=== PATIENT | male | born 1965 | race African-American/Black ===

== ENCOUNTER → 2016-08-13 | Outpatient (CLI) | payer OTHER | LOC: MMPC 09:00 | PROVIDERS: ATTEND Family Medicine | DX: Z79.01 Long term (current) use of anticoagulants (principal); Z51.81 Encounter for therapeutic drug level monitoring; Z86.718 Personal history of other venous thrombosis and embolism | CPT/HCPCS: 85610 ==

== ENCOUNTER → 2016-08-21 | Outpatient (CLI) | payer OTHER | LOC: MMPC 09:00 | PROVIDERS: ATTEND Family Medicine | DX: Z79.01 Long term (current) use of anticoagulants (principal); Z51.81 Encounter for therapeutic drug level monitoring; Z86.718 Personal history of other venous thrombosis and embolism | CPT/HCPCS: 85610 ==

== ENCOUNTER → 2016-08-22 | Outpatient (CLI) | payer OTHER ==
--- NOTE | 2016-08-22 11:18 | DI ---
History: Left knee arthroplasty check. Prior exam: 04/25/16, time of surgery. Two-view examination. Findings: The femoral and tibial components appear properly positioned. There is no evidence of bone resorption or displacement. Patient's [place] patella appears normal. No displacement identified. No e vidence of effusion observed. Impression: Satisfactory appearance of left total knee replacement. Details mentioned above
--- NOTE | 2016-08-22 12:00 | DI ---
History: Pulmonary emboli in 2016. Patient on Coumadin. Leg swelling below the site of chronic thromb osis. Procedure: This examination was performed with mid frequency trans-user left lower extremity only wit h compression and augmentation. Findings: The greater saphenous venous system is patent. No thrombosis is noted in the common femoral vein. Good flow and augmentation with compression identified. The superficial femoral vein is partially thrombosed down to the popliteal vein/adductor canal level. There has been some organization and recanalization of the clot. No large amount of edema is observe d in the soft tissues in the lower calf region. Impression: Persistent organized thrombosis of the left superficial femoral vein with recanalization. No ultrasonographic evidence of acute vein thrombosis observed. Very limited waveforms identified in this area. Consider followup examination if symptoms progress. Results were discussed with Eddie clifton at 1153 hours today.
== END ==
LOC: MOB RAD 09:00
PROVIDERS: ATTEND Physician Assistant Medical
DX: M25.562 Pain in left knee (principal); M79.89 Other specified soft tissue disorders; I82.512 Chronic embolism and thrombosis of left femoral vein; Z96.652 Presence of left artificial knee joint
CPT/HCPCS: 73560; 93971; 99214; G0463

== ENCOUNTER → 2016-08-25 | Outpatient (CLI) | payer OTHER ==
--- NOTE | 2016-08-25 20:47 | DI ---
LEFT KNEE, 08/25/2016 4:31 PM: Clinical History: Acute left knee pain. Previous Exam: 08/22/2016. 3 views are submitted. The patient is status post total left knee replacement. The prosthetic device articulates normally. There is no evidence of loosening of the prosthesis. No joint effusion is prese nt. Reading: Status post total left knee replacement. The prosthetic joint articulates normally. There has been no change.
== END ==
LOC: ORTHO 16:42
PROVIDERS: ATTEND Orthopaedic Surgery
DX: M25.562 Pain in left knee (principal); Z96.652 Presence of left artificial knee joint
CPT/HCPCS: 73562

== ENCOUNTER → 2016-09-18 | Outpatient (CLI) | payer OTHER | LOC: MMPC 09:00 | PROVIDERS: ATTEND Family Medicine | DX: Z79.01 Long term (current) use of anticoagulants (principal); Z51.81 Encounter for therapeutic drug level monitoring; Z86.718 Personal history of other venous thrombosis and embolism | CPT/HCPCS: 85610 ==

== ENCOUNTER → 2016-10-15 | Outpatient (CLI) | payer OTHER | LOC: MMPC 09:00 | PROVIDERS: ATTEND Family Medicine | DX: E11.9 Type 2 diabetes mellitus without complications (principal); I10 Essential (primary) hypertension; E66.01 Morbid (severe) obesity due to excess calories; M17.11 Unilateral primary osteoarthritis, right knee; M17.12 Unilateral primary osteoarthritis, left knee; F33.40 Major depressive disorder, recurrent, in remission, unspecified; Z86.718 Personal history of other venous thrombosis and embolism | CPT/HCPCS: 99214 ==

== ENCOUNTER → 2016-10-16 | Outpatient (CLI) | payer OTHER ==
--- NOTE | 2016-10-17 08:05 | DI ---
LEFT KNEE, 10/16/2016 11:37 AM: Clinical History: History of left knee replacement for degenerative arthritic disease. Previous Exam: 08/25/2016. 3 views are submitted. The AP projection is a weightbearing view. The patient is status post total le ft knee replacement. The prosthetic device articulates normally. There is no joint effusion. There is no evidence of loosening of the prosthetic device. Reading: Status post total left knee replacement. There has been no change since the previous exam.
== END ==
LOC: ORTHO 11:47
PROVIDERS: ATTEND Orthopaedic Surgery
DX: M25.562 Pain in left knee (principal); Z96.652 Presence of left artificial knee joint; Z98.890 Other specified postprocedural states; Z79.01 Long term (current) use of anticoagulants; Z51.81 Encounter for therapeutic drug level monitoring; Z86.718 Personal history of other venous thrombosis and embolism
CPT/HCPCS: 73562; 85610; 99214; G0463

== ENCOUNTER → 2016-11-06 | Outpatient (CLI) | payer OTHER | LOC: SLEEP LAB 19:28 | PROVIDERS: ATTEND Family Medicine | DX: G47.33 Obstructive sleep apnea (adult) (pediatric) (principal) | CPT/HCPCS: 95811 ==

== ENCOUNTER → 2016-11-13 | Outpatient (CLI) | payer OTHER | LOC: MMPC 09:00 | PROVIDERS: ATTEND Family Medicine | DX: Z79.01 Long term (current) use of anticoagulants (principal); Z51.81 Encounter for therapeutic drug level monitoring; Z86.718 Personal history of other venous thrombosis and embolism | CPT/HCPCS: 85610 ==

== ENCOUNTER → 2016-12-01 | Outpatient (CLI) | payer OTHER | LOC: MMPC 10:00 | PROVIDERS: ATTEND Orthopaedic Surgery | DX: M25.562 Pain in left knee (principal); Z96.652 Presence of left artificial knee joint | CPT/HCPCS: 99213; G0463 ==

== ENCOUNTER → 2016-12-09 | Outpatient (CLI) | payer OTHER ==
[2016-12-09 10:16] LABS: HEMOGLOBIN A1C 7.72 % (4.2-6.0)
== END ==
LOC: MOB LAB 08:13
PROVIDERS: ATTEND Family Medicine
DX: E11.9 Type 2 diabetes mellitus without complications (principal)
CPT/HCPCS: 83036

== ENCOUNTER → 2016-12-10 | Outpatient (CLI) | payer OTHER | LOC: MMPC 09:00 | PROVIDERS: ATTEND Family Medicine | DX: I10 Essential (primary) hypertension (principal); E11.9 Type 2 diabetes mellitus without complications; M25.561 Pain in right knee; M25.562 Pain in left knee; E66.01 Morbid (severe) obesity due to excess calories; G47.33 Obstructive sleep apnea (adult) (pediatric); Z86.718 Personal history of other venous thrombosis and embolism; Z79.01 Long term (current) use of anticoagulants; Z96.652 Presence of left artificial knee joint | CPT/HCPCS: 99215; G0463 ==

== ENCOUNTER → 2016-12-12 | Outpatient (CLI) | payer OTHER | LOC: MMPC 09:00 | PROVIDERS: ATTEND Family Medicine | DX: Z79.01 Long term (current) use of anticoagulants (principal); Z51.81 Encounter for therapeutic drug level monitoring; Z86.718 Personal history of other venous thrombosis and embolism | CPT/HCPCS: 85610 ==

== ENCOUNTER → 2017-01-08 | Outpatient (CLI) | payer OTHER | LOC: MMPC 09:00 | PROVIDERS: ATTEND Family Medicine | DX: Z79.01 Long term (current) use of anticoagulants (principal); Z51.81 Encounter for therapeutic drug level monitoring; Z86.718 Personal history of other venous thrombosis and embolism | CPT/HCPCS: 85610 ==

== ENCOUNTER → 2017-01-21 | Outpatient (CLI) | payer OTHER | LOC: MMPC 09:00 | PROVIDERS: ATTEND Family Medicine | DX: I10 Essential (primary) hypertension (principal); E11.9 Type 2 diabetes mellitus without complications; E66.01 Morbid (severe) obesity due to excess calories; Z86.718 Personal history of other venous thrombosis and embolism; Z79.01 Long term (current) use of anticoagulants | CPT/HCPCS: 99214 ==

== ENCOUNTER → 2017-02-05 | Outpatient (CLI) | payer OTHER | LOC: MMPC 09:00 | PROVIDERS: ATTEND Family Medicine | DX: Z79.01 Long term (current) use of anticoagulants (principal); Z51.81 Encounter for therapeutic drug level monitoring; Z86.718 Personal history of other venous thrombosis and embolism | CPT/HCPCS: 85610 ==

== ENCOUNTER → 2017-03-13 | Outpatient (CLI) | payer OTHER | LOC: MMPC 09:00 | PROVIDERS: ATTEND Family Medicine | DX: Z79.01 Long term (current) use of anticoagulants (principal); Z51.81 Encounter for therapeutic drug level monitoring; Z86.718 Personal history of other venous thrombosis and embolism | CPT/HCPCS: 85610 ==